=== PATIENT | male | born 1970 | race Hispanic/Latino ===

== ENCOUNTER 2024-06-06 23:47 | Emergency (ER) | payer SELFPAY ==
[~2024-06-06] VITALS: Ht 172.7 cm; Wt 103.9 kg
[2024-06-07] MEDS ORDERED: IBUP-2077 PO (00:28)
[2024-06-07] MEDS ORDERED: METH8TAB PO (00:28)
--- NOTE | 2024-06-07 00:28 | ERN ---
General Chief Complaint: Lower Extremity Pain/Injury Stated Complaint: C/O SWELLING WITH REDNESS TO LEFT FOOT Time Seen by MD: 23:50 Source: patient History of Present Illness Initial Comments Patient is a 54-year-old gentleman coming in to be evaluated for left foot pain. The patient his base of the 1st digit in the left foot has been hurting for one month. He notices flare-ups. Patient states that he did drink alcohol couple of days ago and believes it might have influence his foot pain. Past Medical History Past Medical History: Other Medical History Other: HX OF GOUT Past Surgical History: None ROS Dictation CONSTITUTIONAL: No chills, no fever, no weakness, no diaphoresis, no malaise. HEAD/FACE: No signs of trauma. EENT: No eye pain, no blurred vision, no tearing, no double vision, no ear pain, no ear discharge, no nose pain, no nasal congestion, no throat pain, no throat swelling, no mouth pain. RESPIRATORY: No cough, no orthopnea, no SOB, no stridor, no wheezing. CARDIOVASCULAR: No chest pain, no edema, no palpitations, no syncope. GASTROINTESTINAL/ABDOMINAL: No abdominal pain, no constipation, no diarrhea, no nausea, no vomiting. GENITOURINARY: No abnormal discharge, no dysuria, no frequent urination, no hematuria. No complaints of pain in the genitals. MUSCULOSKELETAL: No back pain, no gout, joint pain, joint swelling, no muscle pain, no muscle stiffness, no neck pain. INTEGUMENTARY: No change in color, no change in hair/nails, no dryness, no lesion, no lumps, no rash. NEUROLOGICAL/PSYCH: No anxiety, not depressed, no emotional problem, no headache, no numbness, no pre-existing deficit, no history of seizures, no tremors, no weakness. HEMATOLOGIC/LYMPHATIC: Not anemic, no history of blood clots, no apparent bleeding, no bruising, glands not swollen. All Systems Negative, Except as Noted. Physical Exam Physical Exam Dictation VITAL SIGNS: Reviewed. GENERAL APPEARANCE: Alert, oriented x3, no acute distress, obese. HEAD AND FACE: Non-traumatic. EYES: PERRL, pink conjunctivas, eyelid no trauma, anterior chamber clear. EARS: Pinnas intact and no signs of trauma or erythema. Ear canals clear and no discharge. TMs no erythema. NOSE: No discharge, no bleeding. OROPHARYNX: Mouth normal, teeth no caries, tongue pink. Pharynx clear, no erythema. Tonsils no exudates, no abscesses noted. Mucous membrane moist. NECK: Supple, non-tender, no thyromegaly, no masses, no JVD, no bruits. BREAST: Deferred. CHEST: No tenderness, no crepitus, no paradoxical movement, no retractions. LUNGS: Clear, well-ventilated, symmetric, no rales, no wheezing, no rhonchi, no stridor, good breath sounds bilaterally. HEART: Regular rate, regular rhythm, no murmur, no gallops. VASCULAR: No peripheral edema. ABDOMEN: Soft, positive bowel sounds, nondistended, no guarding, nontender, no rebound, no masses no hepatomegaly, no splenomegaly, no Sheikh's sign, no hernias. RECTAL: Deferred. GENITAL: Deferred. NEUROLOGICAL: Normal speech, gross motor function intact, gross sensory function intact. MUSCULOSKELETAL: Neck nontender, full range of motion, back nontender, full range of motion. EXTREMITIES: Nontender, full range of motion. Left foot 1st digit base erythema and tenderness. SKIN: Color pink, dry, no turgor, no rash, no lacerations, no abrasions, no contusions. LYMPHATICS: Deferred. Results Laboratory and Microbiology Labs Reviewed?: Yes MDM MDM: Differential diagnosis: Gout, joint pain, Patient is a 64-year-old gentleman coming in to be evaluated for left foot pain. Patient states that the pain has been ongoing for one month. Patient also states that he has been drinking alcohol a couple of days ago and noticed it might have influence his joint pain. Patient does have a history of gout. Patient received anti-inflammatories and will be prescribed some as well. ED Course Orders Procedure Category Date Status Time Ketorolac PHA 06/07/24 Transmitted Tromethamine 30mg/Ml 00:30 Triamcinolone Acet PHA 06/07/24 Transmitted 40mg/Ml 1ml (Kenalog 00:30 Vital Signs Date Time Temp Pulse Resp B/P (MAP) Pulse Ox O2 Delivery O2 Flow Rate FiO2 06/06/24 23:49 97.3 80 20 123/78 98 Room Air DX & DISP Disposition: Discharge Departure Impression: Primary Impression: Gout attack Condition: Stable Scripts Methylprednisolone (Medrol) 8 Mg Tablet 1 TAB PO BID for 5 Days, #10 TAB 0 Refills Prov: VAIBHAV SONI MD 06/07/24 Ibuprofen (Ibuprofen 800 mg Tab) 800 Mg Tab 1 TAB PO TID for pain for 10 Days, #30 TAB 0 Refills Prov: VAIBHAV SONI MD 06/07/24 Additional Instructions: FOLLOW-UP WITH PRIMARY CARE PROVIDER IN 1 TO 2 DAYS. TAKE MEDICATIONS DIRECTED HERE IN THE EMERGENCY ROOM. OKAY TO CONTINUE HOME MEDICATIONS UNLESS OTHERWISE DISCUSSED DURING YOUR VISIT IN THE EMERGENCY ROOM TODAY. RETURN TO YOUR NEAREST EMERGENCY ROOM IF SYMPTOMS WORSEN OR IF THERE IS NO IMPROVEMENT. CALL 911 IF YOU NEED IMMEDIATE ASSISTANCE. TAKE TYLENOL [id number] NEEDED AND IF NO CONTRAINDICATIONS ARE PRESENT. INCREASE ORAL HYDRATION. A WOUND CULTURE OR URINE CULTURE WAS ORDERED HERE IN THE EMERGENCY ROOM DEPARTMENT PLEASE FOLLOW-UP WITH PRIMARY CARE PROVIDER AND ADVISE THEM TO GET REPEAT PORTS FROM OUR FACILITY. IF YOU HAD ANY DONNIE WRAP/SPLINTS THAT WERE APPLIED HERE, PLEASE DO NOT REMOVE THEM UNTIL YOU SEE YOUR PRIMARY CARE OR SPECIALTY. Referrals: Referrals: SELF,REFERRAL (PCP) DAX PAGE MD Time of Disposition: 00:26 VAIBHAV SONI MD Jun 07, 2024 00:28
[2024-06-07] MEDS: TRIAMCINOLONE ACETONIDE 40 MG/ML 1ML VIAL IM ONE (00:34)
[2024-06-07] MEDS: ketOROlac 30MG VIAL (30MG/ML) IM ONE (00:34)
[2024-06-07 00:57] VITALS: BP 142/79; PULSE 80; RESP 18; TEMP 97.3; O2SAT 99
== END 2024-06-07 00:58 | disposition home or self-care (01) ==
LOC: EDH 23:47
DX: M10.9 Gout, unspecified (principal)
CPT/HCPCS: 99284; 96372 ×2; J3301; J1885